=== PATIENT | female | born 1955 | race Caucasian/White ===

== ENCOUNTER 2020-03-11 11:44 | Outpatient (REF) | payer BC, SELFPAY ==
--- NOTE | 2020-03-11 11:30 | PAPFT_PTH ---
PATIENT: Marah Gray LOC: [facility] U#:[id number] AGE/SX: 65/F ROOM: RE03/11/[address]: HECTOR Mendez : 1955 BED: DIS: 03/11/2020 SPEC #: [id number] RECD: 03/11/20 13:04 STATUS: AIDA REQ #: [id number] PREMA: 03/11/20 11:[address]: Katiuska Miranda DEPT: [facility] Cytology RECD BY: Eli Banerjee ENTERED: 03/11/20 13:04 SP TYPE: PAPFT OTHR DR: Shane Rondon Tissues: 1 - CX/ENDOCX FOR PAP SMEARS Procedures: PAP THIN PREP/[facility] Screening Comments: [id number] ([facility])
== END 2020-03-11 12:04 ==
LOC: LBN 11:44
PROVIDERS: PCP Neuromusculoskeletal Medicine & OMM; Visit Provider Nurse Practitioner Family
DX: Z12.4 Encounter for screening for malignant neoplasm of cervix (principal)
CPT/HCPCS: 88142

== ENCOUNTER 2021-01-31 02:24 | Outpatient (CLI) | payer MEDICARE, SELFPAY ==
[2021-01-31 16:59] LABS: Anion Gap 10.2 mmol/L (3-11); BUN 22 mg/dL (7-18); CO2 25.8 mmol/L (21.0-32.0); Calcium 9.2 mg/dL (8.5-10.1); Calculated LDL 236 mg/dL (<100); Chloride 104 mmol/L (98-107); Cholesterol 323 mg/dL (<200); Estimated GFR 55.82 (mL/min/1.73m2); Glucose 102 mg/dL (74-106); HDL Cholesterol 64 mg/dL (40-60); Potassium 4.4 mmol/L (3.5-5.1); Sodium 140 mmol/L (136-145); Triglyceride 115 mg/dL (<150)
== END 2021-01-31 02:25 | disposition home or self-care (01) ==
LOC: LBO 02:24
PROVIDERS: PCP Internal Medicine; Visit Provider Internal Medicine
DX: M25.562 Pain in left knee; E78.00 Pure hypercholesterolemia, unspecified; I10 Essential (primary) hypertension
CPT/HCPCS: 36415; 80048; 80061; 84550

== ENCOUNTER 2021-02-04 00:26 | Outpatient (CLI) | payer MEDICARE, BC, SELFPAY ==
--- OUTSIDE RECORDS SUMMARY | 2021-02-04 00:28 | XMS_ITS ---
:1955 Author Care Team Providers Name Role Phone SEBASTIAN ADDISON General Surgeon [phone] Allergies None recorded. Medications Name Status Start Date Stop Date ? ? amlodipine 2.5 mg tablet Active ? Not salomón ilable amoxicillin 875 mg tablet Completed 06/15/20162016 1 (one) Tablet: bid - twice daily amoxicillin 875 mg-potassium clavulanate 125 mg tablet Completed 05/21/2014 05/24/2014 1 (one) Tablet Tablet: two times daily atorvastatin 20 mg tablet Active ? Not av ailable coenzyme Q10 100 mg capsule Completed 04/26/200905/17 3 (three) Capsule: daily Crestor 10 mg tablet Completed 11/18/2010 11/18/2010 1 Tablet: daily ferrous sulfate 325 mg (65 mg iron) tablet,delayed release Compl eted 08/21/2010 08/21/2010 1 (one) Tablet DR: daily Fluarix Quad 9781-2585 (PF) 60 mcg Active ? Not available (15 mcg x 4)/0.5 mL IM syringe Fluzone Quad (PF) 60 mcg Active ? Not available (15 mcg x 4)/0.5 mL IM syringe Fluzone Quad (PF) 60 mcg Active ? Not available (15 mcg x 4)/0.5 mL IM suspension hydrochlorothiazide 12.5 mg capsule Completed 02/23/2008 02/23/2008 1 (one) Capsule: Daily ibuprofen 200 mg tablet Active ? Not avai lable Take 1 tablet every 6 hours by oral route. ibuprofen 600 mg tablet Completed 02/27/2013 05/28/19 15 1 (one) Tablet: three times daily, as needed Iron (ferrous sulfate) 325 mg (65 mg iron) tablet Completed 04/26/2009 05/14/2010 1 (one) Tablet: two times daily Lipitor 40 mg tablet Completed 11/28/2008 12/16/2009 1 (one) Tablet: Daily metoprolol succinate ER 50 mg Active ? No t available tablet,extended release 24 hr nicotine 7 mg/24 hr daily transdermal patch Completed 09/1601/25/2006 1 (one) Patch 24HR: Daily Prilosec OTC 20 mg tablet,delayed release Active ? Not available Take 2 tablets every day by oral route. Pyridium 200 mg tablet Completed 05/14/2010 0 1 (one) Tablet: tid - three times a day ramipril 10 mg capsule Active ? Not avail able Take 1 capsule by mouth once daily valacyclovir 1 gram tablet Active ? Not a vailable TAKE 2 TABLETS BY MOUTH TWICE DAILY (FOR 24 HOURS) Vitamin D Active ? Not available Wellbutrin XL 150 mg 24 hr tablet, extended release Completed 08/10/2011 01/21/2012 1 Tablet ER 24HR: daily Xanax 0.25 mg tablet Completed 01/21/2012 07/24/2013 1 Tablet: PRN Zovirax 5 % topical cream Completed 04/26/20092011 1 (one) Cream: 5 times a day Problems Name Status Onset Date Source ? Hyperlipidemia Active ? History Eustachian Tube Disorder Active ? History Hypertensive Disorder Active ? History Chronic Rhinitis Active ? History Lateral Epicondylitis Unknown ? History Dizziness and Giddiness Unknown ? History Blood Chemistry Abnormal Unknown ? History Adult Health Examination Unknown ? History Screening Mammography Unknown ? History Specialized Medical Examination Unknown ? History Bunion Active ? History Procedure by Method Unknown ? History SNOMED CT Concept Unknown ? History Procedures Date Name Performed by ? 03/28/2020 Colonoscopy Information not avai lable Notes: normal colon, grade 1 internal hemorrhoids ? Hernia Repair Information not avai lable Notes: 198708/03/2018 DEXA, Axial Skeleton [facility] (Internal) [address] [place] [address] (Work Place) 10/31/2019 DEXA, Axial Skeleton [facility] (Internal) [address] [place] [address] (Work Place) Results Lab Results Date Name Specimen Result Interpretation Description Value Range Status Address ? 01/25/2020 Lipid Panel, S High Chol 210 mg/dL 50-200 Ana [place] Serum mg/dL [facility] (Internal) : [address] ? ? S ? Trig 83 mg/dL 10-150 Final [place] mg/dL [facility] (Internal) : [address] ? ? S ? Hdl 52 mg/dL 40-60 Final [place] mg/dL [facility] ([facility]) : [address] ? ? S High Ldl 141 mg/dL 0-130 Final [place] mg/dL [facility] ([facility] : [address] 08/08/2018 CBC W/ Auto BLD - Wbc 5.5 10*3/uL 5.0-10. Fi nal North Diff 0 Country 10*3/uL Hospital Lab (Internal) : [address] ? ? BLD Low Rbc 4.07 10*6/uL 4.10-5. Final Nor th 30 Country 10*6/uL Hospital Lab (Internal) : [address] ? ? BLD - Hgb 12.2 g/dL 12.0-16 Final North .0 g/dL [facility] (Internal) : [address] ? ? BLD - Hct 38.3 % 37.0-47 Final North .0 % [facility] ([facility] : [address] ? ? BLD - Mcv 94.1 fL 80.0-96 Final North .0 fL [facility] (Internal[facility] : [address] ? ? BLD - Mch 30.0 pg 26.0-32 Final North .0 pg [facility] (Internal[facility] : [address] ? ? BLD - Mchc 31.9 g/dL 31.0-35 Final North .0 g/dL [facility] (Internal[facility] : [address] ? ? BLD - Rdw 13.9 % 11.5-14 Final North .5 % [facility] (Internal[facility] : [address] ? ? BLD - Plt 257 10*3/uL 130-450 Final Nort h 10*3/uL [facility] (Internal[facility] : [address] ? ? BLD - Anc 2.71 10*3/uL ? Final Nort h [facility] (Internal[facility] : [address] ? ? BLD - Neutro 49.6 % 40.0-75 Final North .0 % [facility] ([facility] : [address] ? ? BLD - Lymph 38.0 % 20.0-50 Final North .0 % [facility] ([facility] : [address] ? ? BLD - [place] 7.3 % 2.0-10. Final North 0 % [facility] ([facility] : [address] ? ? BLD - Eos 3.8 % 1.0-6.0 Final North % [facility] (Internal[facility] : [address] ? ? BLD - Baso 0.9 % 0.0-1.0 Final North % [facility] (Internal[facility] : [address] ? ? BLD - Ig 0.4 % 0.0-0.9 Final North % [facility] (Internal) : [address] 08/08/2018 Lipid Panel, S - Chol 163 mg/dL 50-200 Ana [place] Serum mg/dL [facility] (Internal) : [address] ? ? S - Trig 96 mg/dL 10-150 Final [place] mg/dL [facility] ([facility]) : [address] ? ? S - Hdl 40 mg/dL 40-60 Final [place] mg/dL [facility] ([facility]) : [address] ? ? S - Ldl 104 mg/dL 0-130 Final [place] mg/dL [facility] (Internal) : [address] 08/08/2018 CMP, Serum or S - g/r 103 mg/dL 74-106 Fin al [place] Plasma mg/dL [facility] ([facility] : [address] ? ? S - Bun 14 mg/dL 7-17 Final North mg/dL [facility] (Internal) : [address] ? ? S - Crea 0.90 mg/dL 0.52-1. Final North 04 Country mg/dL [facility] (Internal) : [address] ? ? S - Ca 9.1 mg/dL 8.4-10. Final North 2 mg/dL [facility] ([facility] : [address] ? ? S - Na 140 mmol/L 137-145 Final [place] mmol/L [facility] ([facility]) : [address] ? ? S - K 4.6 mmol/L 3.5-5.1 Final [place] mmol/L [facility] ([facility] : [address] ? ? S - Cl 106 mmol/L 98-107 Final [place] mmol/L [facility] ([facility] : [address] ? ? S - Tco2 28.0 mmol/L 22.0-30 Final Nort h .0 Country mmol/L [facility] (Internal) : [address] ? ? S - Tp 6.7 g/dL 6.3-8.2 Final North g/dL [facility] (Internal[facility] : [address] ? ? S - Alb 3.9 g/dL 3.5-5.0 Final North g/dL [facility] ([facility] : [address] ? ? S - Tbil 0.8 mg/dL 0.2-1.3 Final North mg/dL [facility] ([facility] : [address] ? ? S - Alp 99 U/L 38-126 Final [place] U/L [facility] : [address] ? ? S - Alt (Sgpt) 40 U/L 9-52 Final North U/L [facility] : [address] ? ? S - Ast (Sgot) 36 U/L 14-36 Final North U/L [facility] ([facility]) : [address] 09/08/2016 CMP, Serum or S ? g/r 106 mg/dL 74-106 Fin al North Plasma mg/dL [facility] ([facility]) : [address] ? ? S High Bun 22 mg/dL 7-17 Final North mg/dL [facility] (Internal) : [address] ? ? S ? Crea 0.80 mg/dL 0.52-1. Final North 04 Country mg/dL Hospital [facility] (Internal) : [address] ? ? S ? Ca 9.2 mg/dL 8.4-10. Final North 2 mg/dL [facility] ([facility] : [address] ? ? S ? Na 144 mmol/L 137-145 Final North mmol/L [facility] ([facility]) : [address] ? ? S ? K 4.9 mmol/L 3.5-5.1 Final North mmol/L [facility] ([facility] : [address] ? ? S ? Cl 106 mmol/L 98-107 Final [place] mmol/L [facility] : [address] ? ? S ? Tco2 27.0 mmol/L 22.0-30 Final Nort h .0 Country mmol/L Hospital [facility] (Internal) : [address] ? ? S ? Tp 7.1 g/dL 6.3-8.2 Final North g/dL [facility] ([facility] : [address] ? ? S ? Alb 4.1 g/dL 3.5-5.0 Final North g/dL [facility] ([facility] : [address] ? ? S ? Tbil 0.6 mg/dL 0.2-1.3 Final North mg/dL [facility] ([facility] : [address] ? ? S ? Alp 109 U/L 38-126 Final [place] U/L [facility] : [address] ? ? S ? Alt (Sgpt) 32 U/L 9-52 Final North U/L [facility] ([facility] : [address] ? ? S High Ast (Sgot) 38 U/L 14-36 Final North U/L [facility] ([facility] : [address] 09/08/2016 Lipid Panel, S ? Chol 155 mg/dL 50-200 Ana l [place] Serum mg/dL [facility] ([facility]) : [address], [place] ? ? S ? Trig 77 mg/dL 10-150 Final North mg/dL [facility] (Internal) : [address] [place] ? ? S Low Hdl 38 mg/dL 40-60 Final North mg/dL [facility] (Internal) : [address] , [place] ? ? S ? Ldl 102 mg/dL 0-130 Final North mg/dL [facility] (Internal) : [address] , [place] ? Venipuncture ? Location Right ? ? P _nc [facility] [place] [address], [place] ? ? ? Needle 21g ? ? P_nc Prim alverto Vacutainer Care [place]: [address], [place] ? ? ? Number of 1 ? ? P_nc P rimary Attempts Care [place]: [address], [place] ? ? ? Successful Yes ? ? P_nc Primary [facility] [place] [address], [place] ? ? ? Dressing Pressure ? ? P_nc Primary Band-aid Care [place] [address], [place] ? ? ? Initials hj ? ? P_nc Pr imary Care [place]: [address], [place] ? Venipuncture ? Location Right ? ? P _nc Primary Antecubital [facility] [place] [address], [place] ? ? ? Needle 21g ? ? P_nc Prim alverto Vacutainer Care [place]: [address], [place] ? ? ? Number of 1 ? ? P_nc P rimary Attempts Care [place]: [address], [place] ? ? ? Successful Yes ? ? P_nc Primary [facility] [place]: [address], [place] ? ? ? Dressing Pressure ? ? P_nc Primary Band-aid Care Applied [place]: [address], [place] ? ? ? Initials LMK ? ? P_nc Pr imary Care [place]: [address], [place] Past Encounters 01/25/2020 Hyperlipidemia Shane Rondon, DO: [address], [place] [address], Ph. 10/31/2019 Adult Health Examination; Family History of Osteoporosis; Hyperlipidemia; Essential Hypertension; Low Back Pain Shane Apple Alcon, DO: [address], [place] [address], Ph. Social History Tobacco Smoking Status Former Smoker (1 pack per a day) No dc: quit 2009 Vaccine List Vaccine Type COVID-19, mRNA, LNP-S, PF, 100 mcg/0.5 m L dose 05/20/2020?0.5 mL 06/17/2020?0.5 mL DT (pediatric) 08/03/2018?0.5 mL Hep B, adult 01/09/2011 08/24/2011 influenza, injectable, quadrivalent 02/21/2018 02/02/2019 03/02/2020 influenza, seasonal, injectable 03/09/2006 01/15/2011 influenza, seasonal, injectable, preserv ative free 04/06/2008 03/20/2010?0.5 mL Tdap 06/13/2007 zoster live 05/17/2016 Plan of Care Reminders Provider Appointments None ? ? recorded. Lab None ? ? recorded. Referral None ? ? recorded. Procedures None ? ? recorded. Surgeries None ? ? recorded. Imaging None ? ? recorded. Vitals 10/31/2019 12:40PM CPE 20 Blood Pressure 144/80 mm[Hg] 08/03/2018 07:40AM CPE 20 Weight Blood Pressure 70.31 kg (1) 150/90 mm[Hg] (2) 154/82 mm[Hg] 03/18/2017 Weight Blood Pressure 70.45 kg 128/82 mm[Hg] 06/15/2016 Height Blood Pressure 157.48 cm 138/80 mm[Hg] 09/09/2015 Height Weight Blood Pressure 157.48 cm 68.72 kg 140/88 mm[Hg] 03/18/2015 Height Weight Blood Pressure 157.48 cm 68.95 kg 140/90 mm[Hg] 11/26/2014 Weight Blood Pressure 63.5 kg 138/88 mm[Hg] 11/12/2014 Weight Blood Pressure 61.23 kg 134/92 mm[Hg] 08/20/2014 Weight Blood Pressure 66.22 kg 142/108 mm[Hg] 07/02/2014 Weight Blood Pressure 64.41 kg 160/98 mm[Hg] 06/05/2014 Weight Blood Pressure 65.91 kg (1) 170/106 mm[Hg] (2) 174/102 mm[Hg] (3) 162/94 mm[Hg] 05/28/2014 Weight Blood Pressure 65.41 kg (1) 212/120 mm[Hg] (2) 178/102 mm[Hg] (3) 166/92 mm[Hg] (4) 198/128 mm[Hg] 05/22/2014 Weight Blood Pressure 66.45 kg (1) 172/92 mm[Hg] (2) 164/96 mm[Hg] 05/21/2014 Weight Blood Pressure 66.45 kg (1) 184/100 mm[Hg] (2) 220/118 mm[Hg] (3) 212/116 mm[Hg] (4) 196/104 mm[Hg] (5) 230/130 mm[Hg] (6) 204/110 mm[Hg] 04/09/2014 Height Weight Blood Pressure 157.48 cm 65.77 kg 144/90 mm[Hg] 07/24/2013 Height Weight Blood Pressure 157.48 cm 68.95 kg 138/84 mm[Hg] 07/20/2012 Weight Blood Pressure 67.13 kg 124/78 mm[Hg] 01/21/2012 Height Weight Blood Pressure 157.48 cm 63.96 kg 122/70 mm[Hg] 07/09/2011 Height Weight Blood Pressure 157.48 cm 68.49 kg 126/60 mm[Hg] 11/18/2010 Weight Blood Pressure 64.86 kg 110/70 mm[Hg] 08/21/2010 Height Weight Blood Pressure 157.48 cm 64.86 kg 110/80 mm[Hg] 05/14/2010 Height Weight Blood Pressure 157.48 cm 64.86 kg 118/70 mm[Hg] 03/20/2010 Weight Blood Pressure 65.77 kg 130/80 mm[Hg] 12/16/2009 Weight Blood Pressure 66.68 kg 136/80 mm[Hg] 04/26/2009 Weight Blood Pressure 69.4 kg 110/60 mm[Hg] 12/19/2008 Weight Blood Pressure 68.49 kg 124/90 mm[Hg] 07/25/2008 Weight Blood Pressure 68.49 kg 120/80 mm[Hg] 02/23/2008 Weight Blood Pressure 68.04 kg 122/90 mm[Hg] 09/15/2007 Weight Blood Pressure 71.89 kg 120/80 mm[Hg] 06/13/2007 Height Weight Blood Pressure 158.75 cm 70.76 kg 102/62 mm[Hg] 01/24/2007 Weight Blood Pressure 69.85 kg 118/76 mm[Hg] 10/13/2006 Weight Blood Pressure 66.68 kg (1) 124/80 mm[Hg] (2) 120/82 mm[Hg] 08/09/2006 Blood Pressure (1) 104/64 mm[Hg] (2) 108/72 mm[Hg] 07/26/2006 Blood Pressure (1) 142/96 mm[Hg] (2) 140/98 mm[Hg] 07/08/2006 Weight Blood Pressure 68.95 kg (1) 138/102 mm[Hg] (2) 140/98 mm[Hg] 06/15/2006 Height Weight Blood Pressure 157.48 cm 68.49 kg 110/70 mm[Hg] 01/25/2006 Weight Blood Pressure 67.13 kg (1) 140/90 mm[Hg] (2) 120/80 mm[Hg] 12/24/2005 Blood Pressure 124/82 mm[Hg] 10/15/2005 Blood Pressure 128/92 mm[Hg] 10/14/2005 Height Weight Blood Pressure 157.48 cm 65.77 kg 152/98 mm[Hg] 07/17/2005 Weight Blood Pressure 63.96 kg (1) 122/70 mm[Hg] (2) 118/72 mm[Hg] 04/29/2005 Weight Blood Pressure 63.96 kg 130/78 mm[Hg] 03/12/2005 Weight Blood Pressure 65.77 kg 150/90 mm[Hg] 12/10/2004 Height Weight Blood Pressure 160.02 cm 63.5 kg 130/88 mm[Hg]
--- NOTE | 2021-02-04 06:45 | DI.RAD_ITS ---
Exam(s) XR KNEE LT 3V AP,LAT,DARYA EXAM: XR KNEE LT 3V AP,LAT,DARYA CLINICAL HISTORY: LT KNEE PAIN,M25.562. TECHNIQUE: 2D digital imaging was performed of the left knee. Three images were obtained. AP, late ral, and PA tunnel views were obtained. COMPARISON: No exams were available for comparison FINDINGS: BONES: No acute fracture is present. No bony destructive lesion is seen. There is an enthesophyte at the superior patella. JOINTS: The knee is normally aligned. There is a small joint effusion. There is mild narrowing of th e medial femoral tibial joint space. SOFT TISSUE: Normal. IMPRESSION: Mild degenerative changes of the knee. DATA REPOSITORY: RADIATION DOSE DELIVERED:
== END 2021-02-04 00:46 ==
PROVIDERS: PCP Internal Medicine; Visit Provider Internal Medicine
DX: M25.562 Pain in left knee (principal); M17.12 Unilateral primary osteoarthritis, left knee; M25.462 Effusion, left knee
CPT/HCPCS: 73562

== ENCOUNTER 2021-08-28 02:24 | Outpatient (CLI) | payer MEDICARE, BC, SELFPAY ==
[2021-08-28 08:50] LABS: Calculated LDL 122 mg/dL (<100); Cholesterol 202 mg/dL (<200); HDL Cholesterol 51 mg/dL (40-60); Triglyceride 149 mg/dL (<150)
== END 2021-08-28 02:25 | disposition home or self-care (01) ==
LOC: LBO 02:24
PROVIDERS: PCP Internal Medicine; Visit Provider Internal Medicine
DX: E78.00 Pure hypercholesterolemia, unspecified (principal)
CPT/HCPCS: 36415; 80061

== ENCOUNTER 2022-02-11 14:28 | Outpatient (CLI) | payer MEDICARE, BC, SELFPAY ==
--- NOTE | 2022-02-11 14:15 | RT.EKG_ITS ---
APPROVED REPORT Exam: Resting ECG Reason for Exam: chest pain Patient Location: O HR:69 bpm ECG Measurements Heart Rate 69 AXIS PA 167 P 57 QRSd 89 QRS 53 QT 414 T 46 QTc 444 Conclusion Sinus rhythm...normal P axis, V-rate 50- 99 Normal Electrocardiogram
== END 2022-02-11 14:29 | disposition home or self-care (01) ==
LOC: DI.KIM 14:29
PROVIDERS: PCP Internal Medicine; Visit Provider Nurse Practitioner
DX: R07.9 Chest pain, unspecified (principal)
CPT/HCPCS: 93010

== ENCOUNTER → 2022-02-26 01:24 | Outpatient (CLI) | payer MEDICARE, BC, SELFPAY ==
--- NOTE | 2022-02-26 06:45 | DI.US_ITS ---
Exam(s) US ABDOMEN EXAM: US ABDOMEN CLINICAL HISTORY: R10.13 epigastric and R07.9 chest pain, ? after eating TECHNIQUE: Ultrasound abdomen performed using standard protocol. COMPARISON: No exams were available for comparison FINDINGS: ABDOMINAL AORTA AND IVC: Visualized portions normal caliber. PANCREAS: Normal where visualized. LIVER: Normal. Hepatopedal flow in the Portal Vein. GALLBLADDER:No evidence of cholelithiasis. No evidence of wall thickening. No pericholecystic fluid i dentified. BILIARY SYSTEM: Common bile duct measures < 7 mm. No intrahepatic biliary ductal dilation. BENÍTEZ'S SIGN: Negative. KIDNEYS: Kidneys are symmetric in size. No evidence of renal calculi. No evidence of hydronephrosis. No renal mass or cyst identified. SPLEEN: Not enlarged. ASCITES: None seen. IMPRESSION: Normal sonographic appearance of the upper abdomen. DATA REPOSITORY:
== END ==
PROVIDERS: PCP Nurse Practitioner; Visit Provider Nurse Practitioner
DX: R07.9 Chest pain, unspecified (principal); R10.13 Epigastric pain
CPT/HCPCS: 76700

== ENCOUNTER → 2022-03-12 02:41 | Outpatient (CLI) | payer MEDICARE, BC, SELFPAY ==
--- NOTE | 2022-03-12 07:15 | DI.NM_ITS ---
APPROVED REPORT Exam: Exercise Treadmill Patient Location: Out-Patient Room/Bed: Stress Nurse: Kaitlyn Ferreira RN Ordering Provider:YOLA MULLINS, Contact Number: [phone] BMI: 28.34 Baseline Rhythm: Sinus Rhythm Indications: SCHWARTZ, EPISODES OF CHEST PAIN Medical History Medical History: HTN, GERD, HLD Cardiac Medications: Omeprazole, Metoprolol succinate, Atorvastatin, Amlodipine Allergies: No known drug allergies Cardiac Risk Factors: HTN, Hyperlipidemia, FHX of CAD, Smoking (former) Previous Cardiac Procedures: None Pretest Chest Pain Characteristics: None Exercise History: Physically active Physical Disabilities: None Lung Sounds: Clear to auscultation Heart Sounds: Regular Stress Test Details Test: Exercise stress testing was performed using a Noé protocol. Nuclear Acquisition: Rest Tc-99m/Stress Tc-99m 1 day Rest Isotope: Tc-99m Sestamibi. Dose: 10.7 Date: 03/12/2022 Injection Time: 0910 Stress Isotope: Tc-99m Sestamibi. Dose: 31.8 Date: 03/12/2022 Injection Time: 1100 HR Resting HR Supine: 63 bpm Max Heart Rate (APMHR): 154.044210 bpm Resting HR Standin bpm Target HR (85% APMHR): 130.052580 bpm Max HR Achieved: 160 bpm % of APMHR: 103.90 Recovery HR: 85 bpm HR response to stress: Normal HR response to stress Comment: Metoprolol succinate not held for test BP Resting BP Supine: 160/86 mmHg Resting BP Standin/90 mmHg Max BP: 212/78 mmHg Recovery BP: 138/80 mmHg BP response to stress: Normal blood pressure response to stress. Comment: Hypertensive at baseline ECG Resting ECG: Sinus Rhythm Ectopy: None Stress ECG: Sinus Tachycardia ST Change: No significant ST segment changes noted Arrhythmia: occasional PAC Recovery ECG: Sinus Rhythm Recovery ST Change: No significant ST segment changes noted Recovery Arrhythmia: occasional PAC Clinical Reason for Termination: Fatigue Stress Symptoms: General Fatigue Exercise duration: 09 min15 sec Highest Stage Reached: Stage 4: 4.2 mph at 16% grade. Exercise capacity: 10.55 METs Malik Treadmill Score: 8.4 Rate Pressure Product: [id number] Stress ECG Conclusion 1. Resting electrocardiogram was within normal limits 2. Patient exercised on the Noé protocol completed a workload of 10.55 METS stopping due to fatigue 3. Resting hypertension. Normal heart rate and blood pressure response to exercise. The patient ach ieved greater than 100% of predicted heart rate for age 4. There was no electrocardiographic evidence of myocardial ischemia 5. There were no significant dysrhythmias 6. See MPI report Malik Treadmill Score is 8.4 which is Low risk. Stress Test Summary STAGE Time (mins) Speed (mph) Grade (%) HR BP SpO2 SYMPTOMS METS Supine 63 160/86 Standing 65 190/90 96 1 3 1.7 10 117 190/82 4.5 2 6 2.5 12 146 200/80 7 3 9 3.4 14 158 210/80 95 10 1 min recovery 135 212/78 96 3 min recovery 101 178/80 6 min recovery 85 138/80 MPI Conclusion Normal myocardial perfusion, no ischemia or prior infarction EF is 72%. Wall motion is normal Radiologist Interpretation Radiologist Interpretation by: Shane Sandoval MD Interpretation Date/Time: 03/12/2022 16:53:38
== END ==
PROVIDERS: PCP Nurse Practitioner; Visit Provider Nurse Practitioner
DX: R06.09 Other forms of dyspnea (principal); R07.9 Chest pain, unspecified
CPT/HCPCS: 78452; 93016; 93018; 93017

== ENCOUNTER → 2022-05-08 10:53 | Outpatient (BNVA) | payer MEDICARE, SELFPAY | PROVIDERS: PCP Nurse Practitioner; Referring Provider Nurse Practitioner; Visit Provider Internal Medicine Cardiovascular Disease | DX: I10 Essential (primary) hypertension (principal); E78.00 Pure hypercholesterolemia, unspecified; Z82.49 Family history of ischemic heart disease and other diseases of the circulatory system; Z87.891 Personal history of nicotine dependence | CPT/HCPCS: 93005; 99203 ==

== ENCOUNTER 2022-05-08 11:11 | Outpatient (CLI) | payer MEDICARE, SELFPAY ==
--- NOTE | 2022-05-08 11:00 | RT.EKG_ITS ---
APPROVED REPORT Exam: Resting ECG Reason for Exam: NPW Baseline needed Patient Location: O HR:70 bpm ECG Measurements Heart Rate 70 AXIS IL 142 P -44 QRSd 85 QRS 45 QT 401 T 32 QTc 433 Conclusion Sinus rhythm...normal P axis, V-rate 50- 99 Normal Electrocardiogram
== END 2022-05-08 11:12 | disposition home or self-care (01) ==
LOC: DI.CARD 11:12
PROVIDERS: PCP Nurse Practitioner; Visit Provider Internal Medicine Cardiovascular Disease
DX: Z82.49 Family history of ischemic heart disease and other diseases of the circulatory system (principal)
CPT/HCPCS: 93010

== ENCOUNTER 2022-08-26 03:13 | Outpatient (CLI) | payer MEDICARE, SELFPAY ==
[2022-08-26 07:42] LABS: ALT 29 U/L (14-59); AST 18 U/L (15-37); Albumin 3.6 g/dL (3.4-5.0); Alkaline Phosphatase 111 U/L (46-116); Anion Gap 3.5 mmol/L (3-11); BUN 23 mg/dL (7-18); Bilirubin, Total 0.4 mg/dL (0.2-1.0); CO2 30.5 mmol/L (21.0-32.0); Calcium 9.1 mg/dL (8.5-10.1); Calculated LDL 118 mg/dL (<100); Chloride 109 mmol/L (98-107); Cholesterol 186 mg/dL (<200); Estimated GFR 62.13 (mL/min/1.73m2); Glucose 112 mg/dL (74-106); HDL Cholesterol 48 mg/dL (40-60); Potassium 4.2 mmol/L (3.5-5.1); Sodium 143 mmol/L (136-145); Total Protein 6.8 g/dL (6.4-8.2); Triglyceride 103 mg/dL (<150)
== END 2022-08-26 03:14 | disposition home or self-care (01) ==
LOC: LBO 03:14
PROVIDERS: PCP Nurse Practitioner; Visit Provider Nurse Practitioner
DX: E78.00 Pure hypercholesterolemia, unspecified (principal); I10 Essential (primary) hypertension
CPT/HCPCS: 36415; 80053; 80061

== ENCOUNTER 2022-10-16 02:32 | Outpatient (CLI) | payer MEDICARE, SELFPAY ==
[2022-10-16 09:27] LABS: Hemoglobin A1C 5.9 % (<5.7)
[2022-10-16 10:16] LABS: Glucose 107 mg/dL (74-106)
== END 2022-10-16 02:33 | disposition home or self-care (01) ==
PROVIDERS: PCP Nurse Practitioner; Visit Provider Nurse Practitioner
DX: R73.01 Impaired fasting glucose (principal)
CPT/HCPCS: 36415; 82947; 83036

== ENCOUNTER 2022-12-04 00:42 | Outpatient (CLI) | payer MEDICARE, SELFPAY ==
--- NOTE | 2022-12-04 10:18 | DI.DEXA_ITS ---
Exam(s) XR DEXA BONE DENSITY W/WO ANA EXAM: XR DEXA BONE DENSITY W/WO ANA CLINICAL HISTORY: SCREENING FOR OSTEOPOROSIS IN POSTMENOPAUSAL WOMAN,Z78.0 TECHNIQUE: [employer] C densitometer analysis of left hip, lumbar spine and left forearm. Lat eral survey image of the thoracic and lumbar spine. COMPARISON: No exams were available for comparison FINDINGS: Lateral view of the thoracic and lumbar spine shows no evidence of compression fractures. Bone mineral density measurements of the lumbar spine correspond to a total T-score of -3.3, in the osteoporotic range. Bone mineral density measurements of the left hip correspond to a total T-score of -2.2. The femora l neck T-score is -2.9, in the osteoporotic range.. Theright forearm bone mineral density measurements correspond to a T-score of the distal 3rd of -2.9 , in the osteoporotic range.. IMPRESSION: Osteoporosis of the lumbar spine, hip and right forearm.
== END 2022-12-04 01:02 ==
LOC: DI 00:44
PROVIDERS: PCP Nurse Practitioner; Visit Provider Nurse Practitioner
DX: Z78.0 Asymptomatic menopausal state (principal); Z13.820 Encounter for screening for osteoporosis
CPT/HCPCS: 77080

== ENCOUNTER 2023-09-17 05:21 | Outpatient (CLI) | payer MEDICARE, SELFPAY ==
[2023-09-17 09:01] LABS: Abs Immature Grans 0.01 10^3/uL (0.0-0.06); Absolute Basophil Count 0.06 10^3/uL (0.0-0.2); Absolute Eosinophil Count 0.24 10^3/uL (0.0-0.7); Absolute Lymphocyte Count 1.96 10^3/uL (1.2-3.4); Absolute Neutrophil Count 3.74 10^3/uL (1.2-6.7); Basophils % 0.9 %; Eosinophils % 3.7 %; HCT 39.4 % (36.0-46.0); HGB 12.5 g/dL (11.2-15.7); Immature Grans % 0.2 %; Lymphocytes % 30.1 %; MCHC 31.7 % (32.0-36.0); MCV 95 fL (80-95); MPV 10.3 fL (8.0-11.0); Monocytes % 7.7 %; Neutrophils % 57.4 %; Platelet Count 257 10^3/uL (130-400); RBC 4.17 10^6/uL (3.93-5.22); RDW 14.2 % (11.7-14.6); WBC 6.51 10^3/uL (4.4-10.8)
[2023-09-17 09:48] LABS: Vitamin D 25 Total 33.7 ng/mL (30-100)
== END 2023-09-17 05:22 | disposition home or self-care (01) ==
PROVIDERS: PCP Nurse Practitioner; Visit Provider Nurse Practitioner
DX: I10 Essential (primary) hypertension (principal); M81.0 Age-related osteoporosis without current pathological fracture
CPT/HCPCS: 36415; 82306; 85025

== ENCOUNTER 2024-04-14 10:59 | Outpatient (CLI) | payer MEDICARE, SELFPAY ==
[2024-04-14 13:27] LABS: ALT 29 U/L (14-59); AST 26 U/L (15-37); Albumin 3.9 g/dL (3.4-5.0); Alkaline Phosphatase 105 U/L (46-116); Anion Gap 7.1 mmol/L (3-11); BUN 24 mg/dL (7-18); Bilirubin, Total 0.47 mg/dL (0.2-1.0); CO2 29.9 mmol/L (21.0-32.0); CREATININE 1.1 mg/dL (0.55-1.02); Calcium 9.6 mg/dL (8.5-10.1); Calculated LDL 156 mg/dL (<100); Chloride 106 mmol/L (98-107); Cholesterol 245 mg/dL (<200); Estimated GFR 54.73 (mL/min/1.73m2); Glucose 102 mg/dL (74-106); HDL Cholesterol 70 mg/dL (40-60); Potassium 4.2 mmol/L (3.5-5.1); Sodium 143 mmol/L (136-145); Total Protein 7.5 g/dL (6.4-8.2); Triglyceride 98 mg/dL (<150)
== END 2024-04-14 11:00 | disposition home or self-care (01) ==
LOC: LBO 11:00
PROVIDERS: PCP Nurse Practitioner; Visit Provider Nurse Practitioner
DX: R73.03 Prediabetes (principal); I10 Essential (primary) hypertension; E78.00 Pure hypercholesterolemia, unspecified
CPT/HCPCS: 36415; 80053; 80061

== ENCOUNTER 2024-10-13 00:55 | Outpatient (CLI) | payer MEDICARE, SELFPAY ==
[2024-10-13 08:52] LABS: Anion Gap 6.7 mmol/L (3-11); BUN 26 mg/dL (7-18); CO2 29.3 mmol/L (21.0-32.0); Chloride 106 mmol/L (98-107); Estimated GFR 61.36 (mL/min/1.73m2); Glucose 108 mg/dL (74-106); Potassium 4.5 mmol/L (3.5-5.1); Sodium 142 mmol/L (136-145)
== END 2024-10-13 00:56 | disposition home or self-care (01) ==
LOC: LBO 00:55
PROVIDERS: PCP Nurse Practitioner; Visit Provider Nurse Practitioner
DX: R79.9 Abnormal finding of blood chemistry, unspecified (principal)
CPT/HCPCS: 36415; 80048

== ENCOUNTER 2024-10-27 01:48 | Outpatient (CLI) | payer MEDICARE, SELFPAY ==
--- NOTE | 2024-10-27 09:59 | W.NUTRFU ---
Date of service: 10/27/24 Time of Service: 09:00 Nutrition Note NOTE: Marah referred to nutrition visit today with concerns of recent A1C hit 5.7 - congruent with prediabetes dx. With focusing on taking care of her childrens needs for so many years she developed the habit of skipping breakfast, sometimes grazing, is not her diet can often be lower in protein (from skipping opportunities to eat it) and from having meals like her lunch lately only containing 10g protein at the most - gets a bulk of it at dinner with meat usually on the menu. Due to skipping and food choices also would assess current diet as not meeting ideal fiber intake and many days over 10% of kcals from added sugars. She takes vitamin D and usually calcium and MVI but she tends to forget to replenish supplies - will take for awhile and when it runs out takes a while to remember to get more. She has played orangutrans recently and I affirmed any kind of activity increases and focus on exercises like resistance work will help with insulin sensitivity as well as help slow/prevent bone loss. Discussed importance of paying attention to habits around sleep, stress mgt and exercise as well as more consistent eating pattern that focuses on meeting ideal protein in take and fiber intake with limiting added sugars/ Reviewed habit changes to work on such as eating breakfast with a good dose of protein and fiber and being aware of how fast added sugars stack up. Sent her an email with link to menu planning resources. Marah will contact with questions or further desire/need for resources or follow up visits. Time Spent in Nutritional Counseling and Treatment: 25 min
== END 2024-10-27 01:49 | disposition home or self-care (01) ==
LOC: DS 01:48
PROVIDERS: PCP Nurse Practitioner; Visit Provider Dietitian, Registered
DX: R73.03 Prediabetes (principal)
CPT/HCPCS: 00123; 97802

== ENCOUNTER 2024-12-22 00:49 | Outpatient (CLI) | payer MEDICARE, SELFPAY ==
--- NOTE | 2024-12-22 08:15 | DI.CT_ITS ---
Exam(s) CT THORACIC SPINE WO EXAM: CT THORACIC SPINE WO CLINICAL HISTORY: thoracic back pain,m54.6. TECHNIQUE: Imaging Protocol: Axial computed tomography images with coronal and sagittal reformatted images were created and reviewed. COMPARISON: CR XR DEXA BONE DENSITY W/WO ANA from 12/04/2022 FINDINGS: Bones: There is a fracture of the T8 vertebral body. There is marked loss of height of the vertebral body particularly centrally with loss of 70 percent of the height of the vertebral body. There are fractures involving both the superior and inferior endplates in the anterior vertebral body. There is minimal retropulsion of the posterior vertebral body into the spinal canal. There is mild narrowing of the T8-T9 neural foramen bilaterally. There is no involvement of the posterior elements. There is mild exaggeration of the kyphosis at this level. This fracture was not present on the DEXA scan from 12/04/2022 which is the most recent examination to include the thoracic spine. Age-appropriate degenerative changes are present throughout the thoracic spine. Soft tissues: There is a small to moderate size hiatal hernia. There is a calcified granuloma in the right upper lobe. No large disk herniations are identified. IMPRESSION: 1. Compression fracture of the T8 vertebral body with marked loss of the height of the vertebral body particularly centrally. There is no significant central spinal canal stenosis. There is mild narrowing of the T8-T9 neural foramen bilaterally. There is also mild kyphotic exaggeration at this level. Please correlate with clinical history to assess for acuity. MRI may also be obtained for further characterization. 2. Small to moderate size hiatal hernia. Unexpected findings RADIATION DOSE DELIVERED: 563.93mGy.cm Total DLP 563.93mGy.cm Total DLP DATA REPOSITORY: All CT scans at this facility are submitted to the National Radiology Data Registry (NRDR) Dose Index Registry (DIR) with the [employer] ([employer]). RADIATION OPTIMIZATION: All CT scans at this facility use at least one of these dose optimization techniques: automated exposure control; mA and/or kV adjustment per patient size (includes targeted exams where dose is matched to clinical indication); or iterative reconstruction.
== END 2024-12-22 01:09 ==
PROVIDERS: PCP Family Medicine; Visit Provider Family Medicine
DX: M54.6 Pain in thoracic spine (principal)
CPT/HCPCS: 72128

== ENCOUNTER 2025-01-19 05:26 | Outpatient (CLI) | payer MEDICARE, SELFPAY ==
--- NOTE | 2025-01-19 06:15 | DI.MRI_ITS ---
Exam(s) MR THORACIC SPINE WO EXAM: MR THORACIC SPINE WO CLINICAL HISTORY: evaluation of healing from October 17 fracture, comp fx t8 vert, S22.060A. TECHNIQUE: Multiplanar multisequence MRI of the Thoracic spine was performed. COMPARISON: CR XR DEXA BONE DENSITY W/WO ANA from 12/04/[address] THORACIC SPINE WO from 12/22/2024 FINDINGS: Bones: There has been no change in the degree of compression of the previously noted severe compression fracture of T8. There is some persistent high signal in the mid to anterior portions of the vertebral body. There is only slight retropulsion. There is mild narrowing of the T8 9 neural foramen bilaterally. The remaining vertebral body heights are well maintained. There is mild edema at the anterior inferior endplate of T7 which could also represent a small fracture. There are endplate osteophytes projecting anteriorly at this level and at T 8-9. Discs: No evidence of disc herniation. There are small endplate osteophytes projecting anteriorly, greatest at T7-8 and T8-9. There is no evidence of central canal stenosis at any level. Cord: The thoracic cord is normal size and signal intensity. No intrinsic cord lesion is present. Soft tissues: Normal. IMPRESSION: Stable severe compression fracture of T8. Probable minimal impaction fracture at the anteroinferior endplate of T7. DATA REPOSITORY:
== END 2025-01-19 05:46 ==
PROVIDERS: PCP Nurse Practitioner; Visit Provider Family Medicine
DX: S22.060D Wedge compression fracture of T7-T8 vertebra, subsequent encounter for fracture with routine healing (principal); X58.XXXD Exposure to other specified factors, subsequent encounter
CPT/HCPCS: 72146

== ENCOUNTER → 2025-05-04 00:05 | Outpatient (CLI) | payer MEDICARE, SELFPAY ==
--- NOTE | 2025-05-04 06:34 | DI.CT_ITS ---
Exam(s) CT ABDOMEN PELVIS W EXAM: CT ABDOMEN PELVIS W CLINICAL HISTORY: Intermittent severe abd pain with emesis,r10.9 TECHNIQUE: Imaging Protocol: Axial computed tomography images with coronal and sagittal reformatted images were created and reviewed. CONTRAST MATERIAL: Intravenous: Omnipaque 350 Contrast volume:70 mL Oral: Yes COMPARISON: US PELVIS TRANSVAG from 11/20/2013 US US ABDOMEN from 02/26/[address] THORACIC SPINE WO from 12/22/2024 FINDINGS: ABDOMEN: Lung Bases: There is a moderate size hiatal hernia. Liver: Normal density. No measurable mass. Portal, Superior Mesenteric, and Splenic Veins: Unremarkable. Gallbladder and Biliary Tract: No radiodense calculus or dilation. Pancreas: Normal density, no abnormal calcifications or inflammatory process. Spleen: Normal. Adrenals: No masses seen. Kidneys: Normal size, contour and axis. No radiodense stones or obstructive uropathy. There are few small cysts seen in the right kidney. No follow-up is recommended. There are tiny hypodensities seen in both kidneys. They are too small for further characterization but likely reflect small cysts. There is an area of scarring in the left kidney. Abdominal Aorta: Abdominal portion non-dilated. Atherosclerotic calcification is present. Bowel: There is diverticulosis of the colon without evidence of acute diverticulitis. There is no evidence of bowel wall thickening or bowel obstruction. Appendix is unremarkable. Peritoneal Cavity: No ascites, collection or mesenteric inflammatory response. No free air. Lymph Nodes: Within normal limits. Bones: Within normal limits for the patient's age. There is L5 spondylolysis and grade 1-2 spondylolisthesis of L5 on S1. Soft Tissues: There is a fat containing left inguinal hernia. PELVIS: Bladder: Symmetric distention, no gross wall thickening. Reproductive Organs: The patient is status post hysterectomy. Lymph Nodes: Within normal limits. Bones: Within normal limits for the patient's age. IMPRESSION: 1. No acute abdominal or pelvic process. 2. Colonic diverticulosis without evidence of acute diverticulitis. 3. L5 spondylolysis and grade 1-2 spondylolisthesis of L5 on S1. RADIATION DOSE DELIVERED: 354.32mGy.cm Total DLP DATA REPOSITORY: All CT scans at this facility are submitted to the National Radiology Data Registry (NRDR) Dose Index Registry (DIR) with the [employer] ([employer]). RADIATION OPTIMIZATION: All CT scans at this facility use at least one of these dose optimization techniques: automated exposure control; mA and/or kV adjustment per patient size (includes targeted exams where dose is matched to clinical indication); or iterative reconstruction.
[2025-05-04] MEDS: Barium Sulfate 2% W/V-Creamy Vanilla Smoothie 450 ML BTL PO (07:07)
[2025-05-04] MEDS: Omnipaque 350 MG/ML 500 ML BTL-Imaging package IJ (07:51)
[2025-05-04] MEDS: Normal Saline - Diluent 50 ML VIAL IJ (07:53)
[2025-05-04] MEDS: Normal Saline Flush 10 ML SYR IVP (07:53)
== END ==
LOC: DI 00:05
DX: R10.9 Unspecified abdominal pain (principal)
CPT/HCPCS: 74177; 82565